=== PATIENT | male | born 1940 | race Caucasian/White ===

== ENCOUNTER 2022-09-11 16:42 | Inpatient (IN) ==
--- NOTE | 2022-09-11 17:00 | Emergency Department Note ---
Impression & Plan Sepsis, UTI (urinary tract infection), High anion gap metabolic acidosis, Hypomagnesemia ED Provider Note NAME: BARBARA MERLOS AGE: 82 SEX: M : 1940 ARRIVES VIA: Ambulance INFORMANT: Patient, ED PROVIDER(S): Ruiz Mahoney MD CHIEF COMPLAINT: Weakness, lightheadedness, diarrhea MEDICAL DECISION MAKING: Patient presents due to concern for weakness lightheadedness and diarrhea. When the patient presented he was tachycardic and hypotensive. Sepsis orders were initiated but given the patient's diarrhea this could just be symptomatic dehydration. The patient otherwise looks well and is mentating normally at the bedside. Upon reassessment the patient did have improvement in his symptoms with improvement of the patient's tachycardia as well as the patient's hypotension. Blood work shows white count of 13 with a hemoglobin of 13.7. Platelet count is unremarkable. Kidney function with creatinine 2.49. No priors for comparison. Lower bicarb and increased anion gap which would be consistent with some dehy dration and RYAN. Initial lactate of 3.8. Given the patient's initial tachycardia and hypotension with associated white blood cell count to believe the patient would benefit from admission at this time. I did speak the on-call hospitalist service and the patient was admitted to the medicine service. The patient does self catheterize and do believe that this is the likely cause of the patient's infection. Urinalysis pending at the time of admission. Repeat lactate improved from 3.8 to 3.3. Patient did not have a 30 cc/kg bolus use as the patient does have CKD. Blood pressure did respond to lesser volume. Patient initially Siuta 2 L of IV fluids and additional IV fluids deferred and patient team Critical Care: I have personally spent 35 minutes of critical care time in direct management of this patient. This includes bedside care, interpretation of diagnostic studies, and testing, discussion with consultants, patient, and family members, and other require inpatient management activities. This 35 minutes is in excess of all separately billable procedures. Prior /Outside records reviewed: None Differential diagnosis: Sepsis, UTI, pneumonia, metabolic, electrolyte abnormalities, cardiac sources, intracerebral event, toxicologic, neurologic, as well as other pathologies. Diagnostics, as interpreted by me: ECG: Sinus tachycardia, rate 137 normal intervals and normal axis. Sinus tachycardia, rate of 137, normal intervals normal axis. Cardiac monitoring: An order was placed for continuous cardiac monitoring. The monitor shows a rate of 127 with tachycardic and regular rhythm. Patient was placed on pulse oximetry Medical decision rules: None Imaging studies: See below I informally reviewed the patient's chest x-ray which showed no obvious pneumonia. HPI: Patient presents due to concern for weakness fatigue and dizziness. The patient states that he developed some chorea around 3 AM this morning and has had approximately 7-8 liquidy watery bowel movements. No blood. Patient did recently arrived from [place] as his son is getting . Patient denies any nausea vomiting. He did have some dizziness this His daughter had called the ambulance. IV fluids were initiated and he does feel improved already. The patient denies any known sick contacts. No other travel outside of his recent travel from [place]. The patient denies any untreated stream or well water recent antibiotic use. PAST MEDICAL HISTORY: Hypertension Hypothyroidism Thyroid ablation PAST SURGICAL HISTORY: History of rotator cuff surgery bilaterally Splenectomy SOCIAL HISTORY: See Below HOME MEDICATIONS: See Below ALLERGIES: See Below VITALS: See Below PHYSICAL EXAMINATION: GENERAL: Fatigable in appearance, wearing glasses. Tall in stature. EYE EXAM: Normal conjunctiva. PERRL, no anisocoria and EOM's grossly intact w/o pain. NECK: Supple, no nuchal rigidity, no adenopathy, non-tender. No signs of meningismus. FROM of the neck with good chin to chest and neck extension. No stridor. LUNGS: Clear to auscultation. Normal chest wall mechanics. HEART: Tachycardic and regular, no MRG. ABDOMEN: Abdomen soft, non-tender, no masses, no rebound or guarding. BACK: No CVA TTP. SKIN: No rashes and no bruising. UPPER EXTREMITIES: Upper extremities are grossly normal. LOWER EXTREMITIES: Grossly normal, no edema. NEURO EXAM: A&O x3, cranial nerves II-XII grossly intact, normal speech, moves all 4 extremities. Past Med/Surg History Medical History Gout HTN (hypertension) Hypotension Hypothyroidism Surgical History S/P splenectomy Social History Smoking Status: Former smoker Second Hand Exposure: No; Hx Alcohol Use: Yes Alcohol type: hard liquor Hx Substance Use: Yes Last Used Substance: Days (ago) Preferred Language: Kazakh Communication Ability: Effective Entertainment Centre Manager Required: No Beliefs That Will Affect Care: None Current Living Situation: Spouse Feels Safe at Home: Yes Assistive Devices: Glasses and Walker Allergies Allergies Allergy/AdvReac Type Severity Reaction Status Date / Time Sulfa (Sulfonamide Allergy Intermediate Rash Unverified 09/11/22 18:00 Antibiotics) Home Meds Home Medications Medication Instructions Recorded Confirmed Eliquis 0 mg PO BID 09/11/22 09/11/22 allopurinol 100 mg tablet 100 mg PO BID 09/11/22 09/11/22 diclofenac sodium 1 % topical gel 1 g topical DAILY 09/11/22 09/11/22 diphenhydramine 25 1 tab PO HS PRN Sleep 09/11/22 09/11/22 mg-acetaminophen 500 mg tablet (Tylenol PM Extra Strength) diphenhydramine HCl 25 mg capsule 25 mg PO TID PRN Allergy Symptoms 09/11/22 09/11/22 (Benadryl) gabapentin 300 mg capsule See Rx Instructions .Route .COMPLEX 09/11/22 09/11/22 hydrochlorothiazide 25 mg tablet 25 mg PO QAM 09/11/22 09/11/22 levothyroxine 200 mcg tablet 300 mcg PO 2XWK 09/11/22 09/11/22 levothyroxine 200 mcg tablet 200 mcg PO [id number] 09/11/22 09/11/22 (Levoxyl) Previous Rx's Medication Instructions Recorded cephalexin 500 mg capsule 500 mg PO TID #9 caps 09/13/22 Results & Data (ED) Vital Signs Vital Signs - 24 hr 09/11/22 16:49 09/11/22 16:49 09/11/22 17:11 Temperature 37 C Temperature Source Temporal Artery Scan Pulse Rate 137 H 138 H Respiratory Rate 16 Respiratory Effort / Characteristics Non-Labored Respiratory Depth Normal Blood Pressure 75/47 L Blood Pressure Mean 56 Blood Pressure Position Right Lateral Pulse Oximetry 98 Oxygen Delivery Method Room Air Room Air Sepsis New/Unexplained Change in Mental Status No Sepsis Action Taken by Nursing No Action Required 09/11/22 17:01 Temperature Temperature Source Pulse Rate Respiratory Rate Respiratory Effort / Characteristics Respiratory Depth Blood Pressure Blood Pressure Mean Blood Pressure Position Pulse Oximetry 94 Oxygen Delivery Method Room Air Sepsis New/Unexplained Change in Mental Status Sepsis Action Taken by Detention Medications Current Medication List: was personally reviewed by me Laboratory Data Attestation: I reviewed the patient's lab results. 09/11/22 17:00 09/11/22 17:00 Lab Results 09/11/22 09/11/22 09/11/22 Range/Units 17:00 17:00 17:00 WBC 13.01 H (4.8-10.8) K/ul RBC 4.29 L (4.70-6.10) M/uL Hgb 13.7 L (14.0-18.0) g/dl Hct 40.0 L (42.0-52.0) % MCV 93.2 (80.0-100.0) fL MCH 31.9 (25.0-34.0) pg MCHC 34.3 (32.0-36.0) g/dL RDW Std Deviation 46.0 (36.4-46.3) fL RDW Coeff of Kyleigh 13.6 (11.5-14.5) % Plt Count 317 (130-400) K/uL MPV 10.4 (9.4-12.4) fL Immature Gran % (Auto) 0.3 % Neut % (Auto) 86.0 % Lymph % (Auto) 6.4 % Piute % (Auto) 6.8 % Eos % (Auto) 0.1 % Baso % (Auto) 0.4 % Neut # (Auto) 11.19 H (1.40-6.50) K/uL Lymph # (Auto) 0.83 L (1.2-3.4) K/uL Piute # (Auto) 0.89 H (0.11-0.59) K/uL Eos # (Auto) 0.01 (0-0.50) K/uL Baso # (Auto) 0.05 (0-0.2) K/uL Immature Gran # (Auto) 0.04 (0.01-0.20) K/uL Sodium 137 (136-145) mmol/L Potassium 4.3 (3.5-5.1) mmol/L Chloride 103 (98-107) mmol/L Carbon Dioxide 19 L (21-32) mmol/L Anion Gap 15 H (3-11) BUN 59 H (6-23) mg/dl Creatinine 2.49 H (0.6-1.4) mg/dl Est Cr Clr Drug Dosing 32.4 ml/min Est GFR ( Amer) 27.2 ml/min Est GFR (Non-Af Amer) 23.5 ml/min BUN/Creatinine Ratio 23.7 H (10-20) Glucose 145 H (70-99(Fasting)) mg/dl Lactate (0.4-2.0) mmol/L Calcium 9.9 (8.6-10.3) mg/dl Magnesium 1.3 L (1.7-2.4) mg/dl Total Bilirubin 0.6 (0.2-1.0) mg/dl Direct Bilirubin 0.1 (0-0.2) mg/dl AST 15 (13-39) U/L ALT 11 (7-52) U/L Alkaline Phosphatase 53 (34-104) U/L Troponin I High Sens 4.7 (0-20) pg/ml Total Protein 6.9 (6.0-8.3) gm/dl Albumin 3.9 (3.4-5.0) gm/dl Procalcitonin 0.68 H (0-0.5) ng/ml TSH (0.300-4.500) uIu/ml 09/11/22 09/11/22 Range/Units 17:00 17:35 WBC (4.8-10.8) K/ul RBC (4.70-6.10) M/uL Hgb (14.0-18.0) g/dl Hct (42.0-52.0) % MCV (80.0-100.0) fL MCH (25.0-34.0) pg MCHC (32.0-36.0) g/dL RDW Std Deviation (36.4-46.3) fL RDW Coeff of Kyleigh (11.5-14.5) % Plt Count (130-400) K/uL MPV (9.4-12.4) fL Immature Gran % (Auto) % Neut % (Auto) % Lymph % (Auto) % Piute % (Auto) % Eos % (Auto) % Baso % (Auto) % Neut # (Auto) (1.40-6.50) K/uL Lymph # (Auto) (1.2-3.4) K/uL Piute # (Auto) (0.11-0.59) K/uL Eos # (Auto) (0-0.50) K/uL Baso # (Auto) (0-0.2) K/uL Immature Gran # (Auto) (0.01-0.20) K/uL Sodium (136-145) mmol/L Potassium (3.5-5.1) mmol/L Chloride (98-107) mmol/L Carbon Dioxide (21-32) mmol/L Anion Gap (3-11) BUN (6-23) mg/dl Creatinine (0.6-1.4) mg/dl Est Cr Clr Drug Dosing ml/min Est GFR ( Amer) ml/min Est GFR (Non-Af Amer) ml/min BUN/Creatinine Ratio (10-20) Glucose (70-99(Fasting)) mg/dl Lactate 3.8 H* (0.4-2.0) mmol/L Calcium (8.6-10.3) mg/dl Magnesium (1.7-2.4) mg/dl Total Bilirubin (0.2-1.0) mg/dl Direct Bilirubin (0-0.2) mg/dl AST (13-39) U/L ALT (7-52) U/L Alkaline Phosphatase (34-104) U/L Troponin I High Sens (0-20) pg/ml Total Protein (6.0-8.3) gm/dl Albumin (3.4-5.0) gm/dl Procalcitonin (0-0.5) ng/ml TSH 0.594 (0.300-4.500) uIu/ml Administered Medications Discontinued Medications Acetaminophen (Acetaminophen 325 Mg Tab) 650 mg PO Q4H PRN PRN Reason: Pain(1,2,3) Or Fever Stop: 10/11/22 22:19 Last Admin: 09/13/22 00:44 Dose: 650 mg Documented By: Admin: 09/11/22 23:06 Dose: 650 mg Documented By: ANNABELLA Apixaban (Apixaban 2.5 Mg Tab) 2.5 mg PO BID SHAZIA Stop: 10/11/22 22:19 Last Admin: 09/13/22 08:35 Dose: 2.5 mg Documented By: Admin: 09/12/22 19:36 Dose: 2.5 mg Documented By: Admin: 09/12/22 08:41 Dose: 2.5 mg Documented By: Admin: 09/11/22 23:05 Dose: 2.5 mg Documented By: ANNABELLA Gabapentin (Gabapentin 300 Mg Cap) 600 mg PO TID@1200,1600,2000 SHAZIA Stop: 10/11/22 22:19 Last Admin: 09/13/22 11:54 Dose: Not Given Documented By: Admin: 09/12/22 19:36 Dose: 600 mg Documented By: Admin: 09/12/22 16:43 Dose: 600 mg Documented By: Admin: 09/12/22 11:00 Dose: 600 mg Documented By: Admin: 09/11/22 23:05 Dose: 600 mg Documented By: ANNABELLA Sodium Chloride (Nss 1000ml) 1,000 mls @ 999 mls/hr IV .Q1H1M SHAZIA Stop: 09/11/22 19:00 Last Infusion: 09/12/22 07:06 Dose: 0 mls/hr Documented By: Admin: 09/11/22 18:12 Dose: 999 mls/hr Documented By: Infusion: 09/11/22 18:06 Dose: 999 mls/hr Documented By: Infusion: 09/11/22 18:05 Dose: 999 mls/hr Documented By: Admin: 09/11/22 17:05 Dose: 999 mls/hr Documented By: ROMIE Piperacillin Sod/Tazobactam Sod (Zosyn) 4.5 gm in 120 mls @ 240 mls/hr IV NOW ONE Stop: 09/11/22 19:01 Last Infusion: 09/12/22 07:05 Dose: 0 mls/hr Documented By: Admin: 09/11/22 19:32 Dose: 240 mls/hr Documented By: AMADOR Magnesium Sulfate/Dextrose (Magnesium Sulfate / D5w) 1 gm in 100 mls @ 100 mls/hr IV NOW STA Stop: 09/11/22 19:32 Last Infusion: 09/12/22 07:05 Dose: 0 mls/hr Documented By: Admin: 09/11/22 18:48 Dose: 100 mls/hr Documented By: ANGEL Lactated Ringer's (Lr) 1,000 mls @ 999 mls/hr IV .Q1H1M ONE Stop: 09/11/22 20:29 Last Infusion: 09/12/22 07:05 Dose: 0 mls/hr Documented By: Admin: 09/11/22 20:12 Dose: 999 mls/hr Documented By: AMADOR Lactated Ringer's (Lr) 1,000 mls @ 999 mls/hr IV .Q1H1M ONE Stop: 09/11/22 21:15 Last Admin: 09/11/22 22:22 Dose: Not Given Documented By: AMADOR Magnesium Sulfate/Dextrose (Magnesium Sulfate / D5w) 1 gm in 100 mls @ 50 mls/hr IV Q2H [facility] Stop: 09/12/22 06:59 Last Infusion: 09/12/22 07:05 Dose: 0 mls/hr Documented By: Admin: 09/12/22 04:34 Dose: 50 mls/hr Documented By: Infusion: 09/12/22 04:29 Dose: 50 mls/hr Documented By: Admin: 09/12/22 02:29 Dose: 50 mls/hr Documented By: Infusion: 09/12/22 02:29 Dose: 50 mls/hr Documented By: Admin: 09/12/22 00:38 Dose: 50 mls/hr Documented By: Infusion: 09/12/22 00:38 Dose: 50 mls/hr Documented By: Admin: 09/11/22 22:49 Dose: 50 mls/hr Documented By: ANNABELLA Piperacillin Sod/Tazobactam (Sod 4.5 gm/ Dextrose) 120 mls @ 30 mls/hr IV Q8H [facility]; Protocol Stop: 09/22/22 02:59 Last Admin: 09/13/22 11:54 Dose: Not Given Documented By: Infusion: 09/13/22 08:21 Dose: 0 mls/hr Documented By: Admin: 09/13/22 04:11 Dose: 30 mls/hr Documented By: Infusion: 09/12/22 23:34 Dose: 0 mls/hr Documented By: Admin: 09/12/22 19:36 Dose: 30 mls/hr Documented By: Infusion: 09/12/22 14:57 Dose: 0 mls/hr Documented By: Admin: 09/12/22 10:56 Dose: 30 mls/hr Documented By: Infusion: 09/12/22 07:29 Dose: 0 mls/hr Documented By: Admin: 09/12/22 04:02 Dose: 30 mls/hr Documented By: ANNABELLA Sodium Chloride (Nss 1000ml) 1,000 mls @ 100 mls/hr IV .Q10H [facility] Stop: 10/12/22 08:29 Last Infusion: 09/13/22 09:22 Dose: 0 mls/hr Documented By: Admin: 09/13/22 06:11 Dose: 100 mls/hr Documented By: Infusion: 09/13/22 05:36 Dose: 100 mls/hr Documented By: Admin: 09/12/22 19:36 Dose: 100 mls/hr Documented By: Infusion: 09/12/22 19:14 Dose: 100 mls/hr Documented By: Infusion: 09/12/22 11:22 Dose: 100 mls/hr Documented By: Admin: 09/12/22 08:41 Dose: 80 mls/hr Documented By: NADIA Ioversol (Optiray 320 125ml) 118 ml IV ONCE ONE Stop: 09/11/22 20:34 Last Admin: 09/11/22 20:34 Dose: 118 ml Documented By: SHANNA Levothyroxine Sodium (Levothyroxine Sodium 200 Mcg Tablet) 200 mcg PO [id number] [facility] Stop: 10/12/22 06:29 Last Admin: 09/13/22 06:11 Dose: 200 mcg Documented By: Admin: 09/12/22 05:48 Dose: 200 mcg Documented By: SRS Imaging Data Radiologist's Impression: Chest X-Ray 09/11/22 17:01 XR chest 1V portable HISTORY: Sepsis COMPARISON: None. FINDINGS: No pneumothorax. No pleural effusions. There are low lung volumes. A few small bibasilar linear densities favor subsegmental atelectasis. Otherwise, no focal lung consolidations to suggest pneumonia. No evidence for pulmonary edema. The heart is normal in size. Degenerative changes noted within the right shoulder. IMPRESSION: No acute process. ACT 112: Negative or not required by law. Electronically signed by: Andrey Ngo M.D. 09/11/2022 6:06 PM Discharge Plan Visit Data Chief Complaint: Illness Stated Complaint: DIARRHEA, DEHYDRATION ED Provider: Ruiz Mahoney Discharge Problem: Sepsis, UTI (urinary tract infection), High anion gap metabolic acidosis, Hypom agnesemia Patient Disposition: Admitted As Inpatient Discharge Instructions Interventions: ED Discharge Assessment Last Done: 09/11/22 22:24
[2022-09-11] MEDS: SODIUM CHLORIDE 0.9% 1000ML 1,000 ML IV SCH ×2 (17:05→18:12)
[2022-09-11 17:29] LABS: Basophils # (auto) 0.05 K/uL (0-0.2); Basophils % (auto) 0.4 %; Eosinophils # (auto) 0.01 K/uL (0-0.50); Eosinophils % (auto) 0.1 %; Hemoglobin 13.7 g/dl (14.0-18.0); Immature Granulocytes # (auto) 0.04 K/uL (0.01-0.20); Immature Granulocytes % (auto) 0.3 %; Lymphocytes # (auto) 0.83 K/uL (1.2-3.4); Lymphocytes % (auto) 6.4 %; Mean Corpuscular Hemoglobin 31.9 pg (25.0-34.0); Mean Corpuscular Hgb Conc 34.3 g/dL (32.0-36.0); Mean Corpuscular Volume 93.2 fL (80.0-100.0); Mean Platelet Volume 10.4 fL (9.4-12.4); Monocytes # (auto) 0.89 K/uL (0.11-0.59); Monocytes % (auto) 6.8 %; Neutrophils # (auto) 11.19 K/uL (1.40-6.50); Platelet Count 317 K/uL (130-400); RDW Coefficient of Variation 13.6 % (11.5-14.5); Red Blood Count 4.29 M/uL (4.70-6.10); White Blood Count 13.01 K/ul (4.8-10.8)
[2022-09-11 17:49] LABS: Albumin Level 3.9 gm/dl (3.4-5.0); BUN Creatinine Ratio 23.7 (10-20); Bilirubin Direct 0.1 mg/dl (0-0.2); Bilirubin,Total 0.6 mg/dl (0.2-1.0); Calcium 9.9 mg/dl (8.6-10.3); Creatinine Clr Calc Pharmacy 32.4 ml/min; Est GFR (African American) 27.2 ml/min; Est GFR (Non-African American) 23.5 ml/min; Magnesium 1.3 mg/dl (1.7-2.4); Potassium 4.3 mmol/L (3.5-5.1); Total Protein 6.9 gm/dl (6.0-8.3)
[2022-09-11 17:53] LABS: Troponin I High Sensitivity 4.7 pg/ml (0-20)
--- NOTE | 2022-09-11 18:07 | XRay Report ---
XR chest 1V portable HISTORY: Sepsis COMPARISON: None. FINDINGS: No pneumothorax. No pleural effusions. There are low lung volumes. A few small bibasilar li near densities favor subsegmental atelectasis. Otherwise, no focal lung consolidations to suggest pne umonia. No evidence for pulmonary edema. The heart is normal in size. Degenerative changes noted with in the right shoulder. IMPRESSION: No acute process. ACT 112: Negative or not required by law. Electronically signed by: Andrey Ngo M.D. 09/11/2022 6:06 PM
[2022-09-11] MEDS ORDERED: MAGNESIUM SULFATE / D5W 1 GM/100 ML BAG IV STA (18:33)
[2022-09-11] MEDS: PIPERACILLIN/TAZOBACTAM 4.5 GM/120 ML BAG IV ONE ×3 (18:47→19:32)
--- NOTE | 2022-09-11 19:00 | History & Physical Report ---
Date of Service September 11, 2022 Assessment & Plan (1) Sepsis: Plan: -Admit to med-tele -Currently stable after initial resuscitation in the ED -Patient was hypotensive, tachycardic, with significant leukocytosis and initial lactate of 3.8 -At this time the most likely source is an acute diarrhea illness, chest xray was negative for consolidation, patient is giving a urine sample at the time of the admission -S/P one dose of zosyn in the ED, will continue zosyn at this time as he is immunocompromised with splenectomy in 1993 -Will obtain CT of the abd/pelvis w/IV con (at baseline baseline Cr level per patient) for further evaluation -Blood cultures obtain in the ED -Will order stool cultures and C. diff PCR -Repeat lactate is in process -Will give an additional 2L LR bolus on admission to complete his sepsis bolus -Home Eliquis for DVT PPX -Will start him on a clear liquid diet for now -AM CBC, CMP, Mag, PT/INR (2) Hypotension: Plan: -Initially hypotensive with systolics in the 70's on arrival -Currently stable after 1L NSS in the ED -Likely multifactorial including acute diarrheal disease and continued HCTZ use with sepsis -Hold HCT for now, will continue IV fluid resuscitation (3) High anion gap metabolic acidosis: Plan: -AG noted to be 15, bicarb of 19, lactate of 3.8 -Likely due to elevated lactate from dehydration and sepsis -2 hour repeat lactate is in process -Continue IV fluid resuscitation and antibiotics for possible infection (4) Hypomagnesemia: Plan: -Initial mag of 1.3 -Likely due to his acute diarrheal disease and continued HCTZ use -S/P 1gm IV mag sulfate in the ED -Will give another 4 bags of 1gm IV mag sulfate -Monitor on tele and monitor am mag level (5) S/P splenectomy: Plan: -Had splenectomy in 1993 -Reason for continued IV abx at this time as he is immunocompromised (6) Hypothyroidism: Plan: -Will add on TSH on admission -Continue levothyroxine (7) terminal carman current use of anticoagulant: Plan: -Previous history of multiple DVT's and PE's -Continue Eliquis. Patient told [employer] he was unsure of dose; he is currently on it for VTE prophylaxis, will continue on 2.5 mg BID (8) HTN (hypertension): Plan: -Stable -Hold HCTZ with current sepsis and recent hypotension (9) Gout: Plan: -Will hold allopurinol until he is stable Plan The patient was discussed with Dr. 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 ED via EMS on 09/11 due to acute diarrhea and weakness. In the ED the patient was initially found to be hypotensive at 75/47, tachycardic with HR in the 140's, but otherwise stable. Labs were significant for a leukocytosis of 13 with left shift of 11, Cr of 2.49 (no previous baseline in system), BUN of 59, AG of 15 with bicarb of 19, initial lactate of 3.8, mag of 1.3, and procal of 0.68. Chest xray was read as "no acute process" and ECG shows sinus tachycardia with a short P-R interval. Prior to admission the patient was given 1L NSS, ordered 1gm of IV mag-sulfate, and ordered a dose of Zosyn. At the time of the exam the patient was resting in bed in no acute distress. He states that he lives in [place] but is in town visiting his son. He had been in his normal state of health until this am at approximately 0300 when he started to developed non-bloody diarrhea. He has had a temperature of 100F this am and has had approximately 10-15 episodes of diarrhea since it started. They ate at a [employer] restaurant for dinner last night, and denies drinking any well water recently. He denies recent antibiotic treatment and did take his am medications today, including his HCTZ. 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 He currently feels less weak than arrival but not back to his baseline yet. He denies recent chest pain, SOB, abd pain, nausea, vomiting, hematuria, LE swelling, and recent trauma. He is a full code and would want his to make medical decisions for him if he cannot make them himself. Please refer to Dr. Salomon's attestation for any changes to the treatment plan Allergies Allergy/AdvReac Type Severity Reaction Status Date / Time Sulfa (Sulfonamide Allergy Intermediate Rash Unverified 09/11/22 18:00 Antibiotics) Home Medications Medication Instructions Recorded Confirmed Type Eliquis 0 mg PO BID 09/11/22 09/11/22 History allopurinol 100 mg tablet 100 mg PO BID 09/11/22 09/11/22 History diclofenac sodium 1 % topical gel 1 g topical DAILY 09/11/22 09/11/22 History diphenhydramine 25 1 tab PO HS PRN Sleep 09/11/22 09/11/22 History mg-acetaminophen 500 mg tablet (Tylenol PM Extra Strength) diphenhydramine HCl 25 mg capsule 25 mg PO TID PRN Allergy Symptoms 09/11/22 09/11/22 History (Benadryl) gabapentin 300 mg capsule See Rx Instructions .Route .COMPLEX 09/11/22 09/11/22 History hydrochlorothiazide 25 mg tablet 25 mg PO QAM 09/11/22 09/11/22 History levothyroxine 200 mcg tablet 300 mcg PO 2XWK 09/11/22 09/11/22 History levothyroxine 200 mcg tablet 200 mcg PO 5XWK 09/11/22 09/11/22 History (Levoxyl) Past Med/Surg History Social History Smoking Status: Former smoker Smoking End Date: 1967; Second Hand Exposure: No; Tobacco Cessation Education Requested by Patient: No Hx Alcohol Use: Yes Alcohol type: hard liquor Hx Substance Use: Yes Last Used Substance: Days (ago) Preferred Language: Tamaz[place] Communication Ability: Effective Gate Guard Required: No Beliefs That Will Affect Care: None Current Living Situation: Spouse Other Information That Helps Us Care for You: No Feels Safe at Home: Yes Safety Concerns: Feels Safe At This Time Assistive Devices: Glasses and Walker Physical Exam Physical Exam: Physical Exam: General: In no acute distress, stated age, well-nourished, non-toxic appearing HEENT: Normocephalic, atraumatic, no scleral icterus, pupils around round, symmetrical, and reactive to light, moist mucus membranes, trachea midline, no thyromegaly Chest/Pulm: No respiratory distress, symmetrical chest expansion, clear breath sounds throughout Cardiac: RRR, no murmurs noted Abdomen: Negative for ascites and bruising, hyperactive bowel sounds, soft, non-tender to palpation throughout Musculoskeletal: Symmetrical and without signs of acute trauma, upper and lower extremities with full ROM, no atrophy, spasticity, or flaccidity Extremities: Radial, dorsalis pedis, and posterior tibial pulses are intact and symmetrical, no edema noted in the BL LE's Skin: Warm, dry, no rashes , lesions, or scars noted Neuro: Alert and oriented to person, place, month, year, and president, no focal defects, no tremors noted Psych: No acute distress, calm and cooperative during the exam Results & Data Results & Data Vital Signs (Past 12 Hours) Vital Signs Temp Pulse Pulse Resp BP BP Pulse Ox 09/11/22 18:16 122 H 15 114/71 96 09/11/22 18:01 125 H 18 119/72 97 09/11/22 17:46 129 H 16 98/62 L 97 09/11/22 17:31 130 H 16 77/52 L 96 09/11/22 17:16 132 H 17 74/49 L 97 09/11/22 17:01 37 C 138 H 16 85/54 L 97 09/11/22 17:01 94 09/11/22 17:11 138 H 09/11/22 16:49 09/11/22 16:49 37 C 137 H 16 75/47 L 98 O2 Del Method 09/11/22 18:16 Room Air 09/11/22 18:01 Room Air 09/11/22 17:46 Room Air 09/11/22 17:31 Room Air 09/11/22 17:16 09/11/22 17:01 Room Air 09/11/22 17:01 Room Air 09/11/22 17:11 09/11/22 16:49 Room Air 09/11/22 16:49 Room Air Laboratory Results Abnormal lab results 09/11/22 09/11/22 09/11/22 Range/Units 17:00 17:00 17:00 WBC 13.01 H (4.8-10.8) K/ul RBC 4.29 L (4.70-6.10) M/uL Hgb 13.7 L (14.0-18.0) g/dl Hct 40.0 L (42.0-52.0) % Neut # (Auto) 11.19 H (1.40-6.50) K/uL Lymph # (Auto) 0.83 L (1.2-3.4) K/uL [place] # (Auto) 0.89 H (0.11-0.59) K/uL Carbon Dioxide 19 L (21-32) mmol/L Anion Gap 15 H (3-11) BUN 59 H (6-23) mg/dl Creatinine 2.49 H (0.6-1.4) mg/dl BUN/Creatinine Ratio 23.7 H (10-20) Glucose 145 H (70-99(Fasting)) mg/dl Lactate (0.4-2.0) mmol/L Magnesium 1.3 L (1.7-2.4) mg/dl Procalcitonin 0.68 H (0-0.5) ng/ml 09/11/22 Range/Units 17:35 WBC (4.8-10.8) K/ul RBC (4.70-6.10) M/uL Hgb (14.0-18.0) g/dl Hct (42.0-52.0) % Neut # (Auto) (1.40-6.50) K/uL Lymph # (Auto) (1.2-3.4) K/uL [place] # (Auto) (0.11-0.59) K/uL Carbon Dioxide (21-32) mmol/L Anion Gap (3-11) BUN (6-23) mg/dl Creatinine (0.6-1.4) mg/dl BUN/Creatinine Ratio (10-20) Glucose (70-99(Fasting)) mg/dl Lactate 3.8 H* (0.4-2.0) mmol/L Magnesium (1.7-2.4) mg/dl Procalcitonin (0-0.5) ng/ml Diagnostic Findings Chest X-Ray 09/11/22 17:01 XR chest 1V portable HISTORY: Sepsis COMPARISON: None. FINDINGS: No pneumothorax. No pleural effusions. There are low lung volumes. A few small bibasilar linear densities favor subsegmental atelectasis. Otherwise, no focal lung consolidations to suggest pneumonia. No evidence for pulmonary edema. The heart is normal in size. Degenerative changes noted within the right shoulder. IMPRESSION: No acute process. ACT 112: Negative or not required by law. Electronically signed by: Andrey Ngo M.D. 09/11/2022 6:06 PM ECG Additional Comments: Sinus tachycardia with short [place] Otherwise normal ECG No previous ECGs available Code Status & VTE Plan Code Status Full code VTE Prophylaxis Plan VTE Prophylaxis will be ordered: Yes Supervising Physician Co-Signing Physician Notes I personally saw and examined the patient. I verified all vivas points and agree with Kt Mceknzie PA-C with the following exceptions and/or additions: 82 year old male presents to the ER with non-bloody diarrhea and fever that started this morning. No prior episodes. O/E HS RRR, no murmurs, Chest CTAB, Abdo SNT, no CVA tenderness A/P Suspected gastroenteritis / sepsis - given splenectomy state will treat empirically with IV zosyn and get CT A/P with IV contrast. Stool PCR, C. diff. Replace magnesium CKD - patient reports Cr at baseline. PG Care Time/CCT Total # of Minutes Spent Total Time Spent with Patient: Total time spent is greater than 50% in coordination of care (as documented) at patient's floor/unit and/or counseling patient: [place] [address] INT INP/OBS CARE 3/75MIN Patient Type New Medical Decision Making High Complexity Diagnoses Sepsis A41.9 Hypotension I95.9 High anion gap metabolic acidosis E87.29 Hypomagnesemia E83.42 S/P splenectomy Z90.81 Hypothyroidism E03.9 terminal carman current use of anticoagulant Z79.01 HTN (hypertension) I10 Gout M10.9
[2022-09-11] MEDS ORDERED: LACTATED RINGER'S 1,000 ML IV ONE ×2 (19:29→20:15)
[2022-09-11] MEDS ORDERED: OPTIRAY 320 125ml IV ONE (20:33)
[2022-09-11 20:34] LABS: Appearance Urine Clear (Clear); Bacteria Urine Automated 2+ (Negative); Bilirubin Urine Negative (Negative); Blood Urine 3+ (Negative); Color Urine Yellow; Glucose Urine UA Negative (Negative); Ketones Urine Negative (Negative); Leukocyte Esterase Urine 2+ (Negative); Nitrite Urine Negative (Negative); Protein Urine Negative (Negative); RBC Urine Automated >30 /hpf (0-4); Specific Gravity Urine 1.017 (1.000-1.030); Urobilinogen Urine Negative (Negative)
--- NOTE | 2022-09-11 21:02 | CT Scan Report ---
Exam(s): CTA ABDOMEN + PELVIS With Contrast IV Amt: 115ml EXAM: CT Angiography Abdomen and Pelvis With Intravenous Contrast CLINICAL HISTORY: Reason for exam: sepsis, diarrhea, hx of splenectomy. TECHNIQUE: Axial computed tomographic angiography images of the abdomen and pelvis with intravenous contrast. CTDI is 37.45 mGy and DLP is 1536.07 mGy-cm. Automated exposure control was utilized for the study. A dose lowering technique was utilized adhering to the principles of ALARA. MIP reconstructed images were created and reviewed. CONTRAST: Patient received 115ml of IV contrast COMPARISON: No relevant prior studies available. FINDINGS: Lung bases are clear. Gallbladder surgically absent. There is no biliary dilatation. Subcentimeter benign hepatic cyst is noted in the left hepatic lobe. Liver is otherwise unremarkable. Spleen is absent. Pancreas and adrenal glands are within normal limits. Kidneys enhance symmetrically, without hydronephrosis or significant perinephric stranding. There is mild atrophy of the left kidney. There are simple right kidney cyst, largest at the midpole measuring 4.7 cm; no further follow-up is required. Urinary bladder and prostate are unremarkable. There is no adenopathy, free fluid, or free air. Appendix is normal. There is no bowel obstruction or mucosal thickening. Small bowel fluid levels are observed. There is atherosclerosis without abdominal aortic aneurysm or dissection. Celiac artery is patent. 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 SMA is patent. 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 BARBARA is patent. Bilateral common, internal, and external iliac arteries are patent. Bones are osteopenic. There is lumbar spondylosis. 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 No acute fractures are visualized. IMPRESSION: 1. Small bowel fluid levels may represent enteritis. 2. Aorta and its branch vessels appear patent. 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 Electronically signed by: Karine Bai M.D. 09/11/22 21:01 PM
[2022-09-11] MEDS: MAGNESIUM SULFATE / D5W 1 GM/100 ML BAG IV SCH (22:49)
[2022-09-11] MEDS: APIXABAN 2.5 MG TAB PO SCH (23:05)
[2022-09-11] MEDS: GABAPENTIN 300 MG CAP PO SCH (23:05)
[2022-09-11] MEDS: ACETAMINOPHEN 325 MG TAB PO PRN (23:06)
[2022-09-12] MEDS: MAGNESIUM SULFATE / D5W 1 GM/100 ML BAG IV SCH ×3 (00:38→04:34)
[2022-09-12 00:40] LABS: Adenovirus F 40/41 PCR Not Detected (NotDetected); Astrovirus PCR Not Detected (NotDetected); Campylobacter PCR Not Detected (NotDetected); Cryptosporidium PCR Not Detected (NotDetected); Cyclospora cayetanensis PCR Not Detected (NotDetected); Entamoeba histolytica PCR Not Detected (NotDetected); Enteroaggregative E.coli(EAEC) Not Detected (NotDetected); Enteropathogenic E.coli (EPEC) Not Detected (NotDetected); Enterotoxigenic E.coli (ETEC) Not Detected (NotDetected); Giardia lamblia PCR Not Detected (NotDetected); Plesiomonas shigelloides PCR Not Detected (NotDetected); Rotavirus A PCR Not Detected (NotDetected); Salmonella PCR Not Detected (NotDetected); Sapovirus PCR Not Detected (NotDetected); Shiga-like Toxin E.coli (STEC) Not Detected (NotDetected); Shigella/Enteroinvasive E.coli Not Detected (NotDetected); Vibrio cholerae PCR Not Detected (NotDetected); Vibrio species PCR Not Detected (NotDetected); Yersinia enterocolitica PCR Not Detected (NotDetected)
[2022-09-12 00:56] LABS: Cdiff Toxin B Gene (2yr or >) Positive Cdiff Gene (Neg)
[2022-09-12 00:57] LABS: Cdiff Antigen Positive; Cdiff Toxin A+B Negative Cdiff Toxin (Negative)
[2022-09-12 00:58] LABS: Norovirus GI/GII PCR DETECTED (NotDetected)
[2022-09-12] MEDS: PIPERACILLIN/TAZOBACTAM 4.5 GM in DEXTROSE 5% 100 ML IV SCH ×3 (04:02→19:36)
[2022-09-12] MEDS: LEVOTHYROXINE SODIUM 200 MCG TABLET PO SCH (05:48)
[2022-09-12 06:59] LABS: Basophils # (auto) 0.06 K/uL (0-0.2); Basophils % (auto) 0.6 %; Eosinophils # (auto) 0.08 K/uL (0-0.50); Eosinophils % (auto) 0.8 %; Hematocrit (blood only) 35.5 % (42.0-52.0); Hemoglobin 12.8 g/dl (14.0-18.0); Immature Granulocytes # (auto) 0.04 K/uL (0.01-0.20); Immature Granulocytes % (auto) 0.4 %; Lymphocytes # (auto) 1.06 K/uL (1.2-3.4); Lymphocytes % (auto) 10.1 %; Mean Corpuscular Hemoglobin 33.1 pg (25.0-34.0); Mean Corpuscular Hgb Conc 36.1 g/dL (32.0-36.0); Mean Corpuscular Volume 91.7 fL (80.0-100.0); Mean Platelet Volume 10.3 fL (9.4-12.4); Monocytes % (auto) 11.5 %; Neutrophils # (auto) 8.01 K/uL (1.40-6.50); Neutrophils % (auto) 76.6 %; Platelet Count 265 K/uL (130-400); RDW Coefficient of Variation 13.4 % (11.5-14.5); RDW Standard Deviation 44.3 fL (36.4-46.3); Red Blood Count 3.87 M/uL (4.70-6.10); White Blood Count 10.45 K/ul (4.8-10.8)
[2022-09-12 07:09] LABS: Albumin Globulin Ratio 1.2 (0.9-2); Albumin Level 3.4 gm/dl (3.4-5.0); BUN Creatinine Ratio 24.4 (10-20); Bilirubin,Total 0.5 mg/dl (0.2-1.0); Calcium 9.2 mg/dl (8.6-10.3); Creatinine Clr Calc Pharmacy 36.3 ml/min; Est GFR (African American) 31.4 ml/min; Est GFR (Non-African American) 27.1 ml/min; Globulin 2.9 gm/dl (2.5-4.0); Magnesium 2.3 mg/dl (1.7-2.4); Potassium 4.1 mmol/L (3.5-5.1); Total Protein 6.3 gm/dl (6.0-8.3)
[2022-09-12 07:15] LABS: Prothrombin Time 11.2 Seconds (9.0-12.0)
[2022-09-12] MEDS: APIXABAN 2.5 MG TAB PO SCH ×2 (08:41→19:36)
[2022-09-12] MEDS: SODIUM CHLORIDE 0.9% 1000ML 1,000 ML IV SCH ×2 (08:41→19:36)
[2022-09-12] MEDS: GABAPENTIN 300 MG CAP PO SCH ×3 (11:00→19:36)
--- NOTE | 2022-09-12 12:08 | Electrocardiogram Report ---
Test Reason : Blood Pressure : / mmHG Vent. Rate : 137 BPM Atrial Rate : 137 BPM P-R Int : 088 ms QRS Dur : 082 ms QT Int : 304 ms P-R-T Axes : 000 043 048 degrees QTc Int : 459 ms Supraventricular tachycardia No previous ECGs available Confirmed by Noah Perkins ([id number]) on 09/12/2022 12:08:22 PM Referred By: REFERRED SELF Confirmed By:Jameson Perkins
--- NOTE | 2022-09-12 12:30 | Hospitalist Progress Note ---
Date of Service September 12, 2022 Assessment & Plan (1) Enteritis due to Norovirus: Plan: Supportive care. Continue IV fluids. C. difficile gene positivity but no recent antibiotic use and I doubt if he has active C. difficile enteritis (2) UTI (urinary tract infection): Plan: Gram-negative rods isolated. Continue Zosyn, day 2. Await final culture results and sensitivities (3) Sepsis: Plan: Present on admission with associated hypotension. This resolved with IV fluids. He did not require pressor support. Blood culture results are still pending. (4) Hypomagnesemia: Plan: Corrected with parenteral replacement (5) Hypothyroidism: Plan: Stable. Continue levothyroxine replacement therapy (6) alf current use of anticoagulant: Plan: Previous history of multiple DVT's and PE's . Continue Eliquis therapy (7) HTN (hypertension): Plan: Stable. Diuretic is temporarily on hold Plan Hopeful discharge to home tomorrow, September 13 Admission and Anticipated Discharge Date Admission Date: September 11, 2022 Subjective Alert and oriented. He has tested positive for norovirus. C. difficile gene is positive but I do not think he has active C. difficile infection. No recent antibiotics. He has evidence of UTI with gram-negative rods isolated. He remains on Zosyn, day 2. Continue IV fluids for now. Physical therapy evaluation noted. Creatinine elevated on admission which is probably acute. I do not know if he has chronic underlying chronic kidney disease but he probably does at his age. He also remains on Eliquis therapy. Review of Systems Review of Systems: Constitutional-no fever or chills ENT-no blurred vision, no double vision, no epistaxis, no sore throat Respiratory-no cough, no wheezing, no shortness of breath Cardiac-no palpitations, no chest pain, no syncope GI-no nausea, vomiting, melena, hematochezia. Watery diarrhea started several days -no urinary retention, no urinary incontinence, no dysuria, no hematuria Musculoskeletal-no joint pain, no muscle tenderness Skin-no bruising, no rashes, no pruritus Neuro-generalized weakness. No focal deficits Psych-no depression, no anxiety Physical Exam 2 Physical Exam: General-alert and oriented x3, no fevers, no chills HEENT-head atraumatic and normocephalic, pupils equal and reactive to light, extraocular muscles intact Neck-no lymphadenopathy or thyromegaly, trachea midline Chest-clear to auscultation percussion. No rales wheezing or rhonchi Cardiac-regular rate and rhythm, normal S1 and S2, no murmurs Abdomen-normal bowel sounds, nontender, no hepatosplenomegaly. Frequent loose stools Extremities-no cyanosis, clubbing, or edema Neuro-cranial nerves II through XII intact, motor and sensory function within normal limits, strength symmetrical with generalized weakness, no focal deficits Psych-normal affect, normal mood Results & Data Results & Data Vital Signs (Past 12 Hours) Vital Signs Temp Pulse Pulse Resp BP Pulse Ox O2 Del Method 09/12/22 07:35 83 09/12/22 03:17 36.8 C 76 18 104/62 96 Room Air Laboratory Results 09/12/22 06:35 09/12/22 06:35 PG Care Time/CCT Total # of Minutes Spent Total Time Spent with Patient: Total time spent is greater than 50% in coordination of care (as documented) at patient's floor/unit and/or counseling patient: Coding Level of Care Code 96712 SUB INP/OBS CARE 3/50MIN Diagnoses Enteritis due to Norovirus A08.11 UTI (urinary tract infection) N39.0 Sepsis A41.9 Hypomagnesemia E83.42 Hypothyroidism E03.9 alf current use of anticoagulant Z79.01 HTN (hypertension) I10
[2022-09-13] MEDS: ACETAMINOPHEN 325 MG TAB PO PRN (00:44)
[2022-09-13] MEDS: PIPERACILLIN/TAZOBACTAM 4.5 GM in DEXTROSE 5% 100 ML IV SCH ×2 (04:11→11:54)
[2022-09-13] MEDS: LEVOTHYROXINE SODIUM 200 MCG TABLET PO SCH (06:11)
[2022-09-13] MEDS: SODIUM CHLORIDE 0.9% 1000ML 1,000 ML IV SCH (06:11)
[2022-09-13 07:27] LABS: Basophils # (auto) 0.04 K/uL (0-0.2); Basophils % (auto) 0.5 %; Eosinophils # (auto) 0.41 K/uL (0-0.50); Eosinophils % (auto) 4.9 %; Hematocrit (blood only) 33.8 % (42.0-52.0); Hemoglobin 11.8 g/dl (14.0-18.0); Immature Granulocytes # (auto) 0.03 K/uL (0.01-0.20); Immature Granulocytes % (auto) 0.4 %; Lymphocytes % (auto) 22.6 %; Mean Corpuscular Hemoglobin 32.2 pg (25.0-34.0); Mean Corpuscular Hgb Conc 34.9 g/dL (32.0-36.0); Mean Corpuscular Volume 92.1 fL (80.0-100.0); Mean Platelet Volume 10.4 fL (9.4-12.4); Monocytes # (auto) 1.49 K/uL (0.11-0.59); Monocytes % (auto) 17.7 %; Neutrophils # (auto) 4.55 K/uL (1.40-6.50); Neutrophils % (auto) 53.9 %; Platelet Count 253 K/uL (130-400); RDW Coefficient of Variation 13.6 % (11.5-14.5); RDW Standard Deviation 46.3 fL (36.4-46.3); Red Blood Count 3.67 M/uL (4.70-6.10); White Blood Count 8.42 K/ul (4.8-10.8)
[2022-09-13 07:37] LABS: Albumin Globulin Ratio 1.2 (0.9-2); Albumin Level 3.3 gm/dl (3.4-5.0); BUN Creatinine Ratio 19.8 (10-20); Bilirubin,Total 0.4 mg/dl (0.2-1.0); Creatinine Clr Calc Pharmacy 38.5 ml/min; Est GFR (Non-African American) 29.4 ml/min; Globulin 2.8 gm/dl (2.5-4.0); Magnesium 1.8 mg/dl (1.7-2.4); Potassium 3.7 mmol/L (3.5-5.1); Total Protein 6.1 gm/dl (6.0-8.3)
[2022-09-13] MEDS: APIXABAN 2.5 MG TAB PO SCH (08:35)
--- NOTE | 2022-09-13 10:20 | Discharge Summary ---
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 In the ED the patient was initially found to be hypotensive at 75/47, tachycardic with HR in the 140's, but otherwise stable. Labs were significant for a leukocytosis of 13 with left shift of 11, Cr of 2.49 (no previous baseline in system), BUN of 59, AG of 15 with bicarb of 19, initial lactate of 3.8, mag of 1.3, and procal of 0.68. Chest xray was read as "no acute process" and ECG shows sinus tachycardia with a short P-R interval. Prior to admission the patient was given 1L NSS, ordered 1gm of IV mag-sulfate, and ordered a dose of Zosyn. At the time of the exam the patient was resting in bed in no acute distress. He states that he lives in [place] but is in town visiting his son. He had been in his normal state of health until this am at approximately 0300 when he started to developed non-bloody diarrhea. He has had a temperature of 100F this am and has had approximately 10-15 episodes of diarrhea since it started. They ate at a [employer] restaurant for dinner last night, and denies drinking any well water recently. He denies recent antibiotic treatment and did take his am medications today, including his HCTZ. 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 He currently feels less weak than arrival but not back to his baseline yet. He denies recent chest pain, SOB, abd pain, nausea, vomiting, hematuria, LE swelling, and recent trauma. He is a full code and would want his to make medical decisions for him if he cannot make them himself. Please refer to Dr. Salomon's attestation for any changes to the treatment plan Principal Diagnosis Norovirus enteritis, uncomplicated Citrobacter UTI, acute on chronic kidney disease, sepsis present on admission Discharge Exam General-alert and oriented x3, no fevers, no chills HEENT-head atraumatic and normocephalic, pupils equal and reactive to light, extraocular muscles intact Neck-no lymphadenopathy or thyromegaly, trachea midline Chest-clear to auscultation percussion. No rales wheezing or rhonchi Cardiac-regular rate and rhythm, normal S1 and S2 Abdomen-normal bowel sounds, nontender, no hepatosplenomegaly Extremities-no cyanosis, clubbing, or edema Neuro-cranial nerves II through XII intact, motor and sensory function within normal limits, strength symmetrical , no focal deficits Psych-normal affect, normal mood Discharge Data Allergies Allergy/AdvReac Type Severity Reaction Status Date / Time Sulfa (Sulfonamide Allergy Intermediate Rash Unverified 09/11/22 18:00 Antibiotics) Consultations 09/11/22 19:10 ED Decision to Admit Stat Ordered Studies 09/11/22 19:48 CT angio abdomen pelvis w con Stat Hospital Course (1) Enteritis due to Norovirus: Much improved. Nearly resolved now . While hospitalized he received IV fluids. C. difficile gene positivity but no recent antibiotic use and I doubt if he has active C. difficile enteritis (2) UTI (urinary tract infection): Citrobacter isolated. Treated while hospitalized with Zosyn. We will continue Keflex at discharge for a few more days (3) Sepsis: Present on admission with associated hypotension. This resolved with IV fluids. He did not require pressor support. Blood culture results are negative (4) Hypomagnesemia: Corrected with parenteral replacement (5) Hypothyroidism: Stable. 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 Continue Eliquis therapy (7) HTN (hypertension): Stable. Diuretic is temporarily on hold. Restart at discharge Plan Home today, September 13 Total Time Total Time Spent Total Time Spent (In Minutes): 45 minutes Discharge Plan Discharge Items Patient Disposition: Home - Self-Care Reason For Visit: HYPOTENSION, DIARRHEA, WEAKNESS Discharge Diagnosis: Norovirus enteritis, sepsis present on admission, Citrobacter uncomplicated UTI, acute on chronic kidney disease Activity: Resume your previous activity Non-emergency contact: Primary Care Provider Call non-emergency contact if: you have any medication questions and your symptoms worsen Follow-up/Referrals: PCP,NO [Primary Care Provider] - Diet: Regular and Heart Healthy Addtl Attending Provider Instructions: Take Keflex (cephalexin) for 3 more days Pending Studies at Discharge: No Stand-Alone Forms: [facility] makerist, Smoking Cessation Medications and DC Order Prescriptions: New cephalexin 500 mg capsule 500 mg PO TID Qty: 9 0RF No Action allopurinol 100 mg tablet 100 mg PO BID diphenhydramine HCl [Benadryl] 25 mg Capsule 25 mg PO TID PRN (Reason: Allergy Symptoms) gabapentin 300 mg capsule See Rx Instructions .ROUTE .COMPLEX Rx Instructions: 600mg by mouth at noon, 4:00pm and 8:00pm levothyroxine [Levoxyl] 200 mcg tablet 200 mcg PO 5XWK Rx Instructions: THU/THU/THU/THU/THU levothyroxine 200 mcg Tablet 300 mcg PO 2XWK Rx Instructions: / hydrochlorothiazide 25 mg tablet 25 mg PO QAM diphenhydramine-acetaminophen [Tylenol PM Extra Strength] 25-500 mg Tablet 1 tab PO HS PRN (Reason: Sleep) diclofenac sodium 1 % gel 1 g TOPICAL DAILY Eliquis 0 mg PO BID Rx Instructions: Pt is unsure of strength of Eliquis Discharge Orders: Discharge Order (Routine); Ordered 09/13/22 Ordered By: Willy Garsia Admission Data Admit Date/Time: 09/11/22 19:02 Attending Provider: Willy Garsia Admit Provider: Olaf Salomon Primary Care Provider: PCP,NO Other Providers: Olaf Salomon Coding Level of Care Code 86763 INP/OBS DISCH >30 MIN Diagnoses Enteritis due to Norovirus A08.11 UTI (urinary tract infection) N39.0 Sepsis A41.9 Hypomagnesemia E83.42 Hypothyroidism E03.9 [employer]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
--- NOTE | 2022-09-13 11:27 | Discharge Summary ---
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 In the ED the patient was initially found to be hypotensive at 75/47, tachycardic with HR in the 140's, but otherwise stable. Labs were significant for a leukocytosis of 13 with left shift of 11, Cr of 2.49 (no previous baseline in system), BUN of 59, AG of 15 with bicarb of 19, initial lactate of 3.8, mag of 1.3, and procal of 0.68. Chest xray was read as "no acute process" and ECG shows sinus tachycardia with a short P-R interval. Prior to admission the patient was given 1L NSS, ordered 1gm of IV mag-sulfate, and ordered a dose of Zosyn. At the time of the exam the patient was resting in bed in no acute distress. He states that he lives in [place] but is in town visiting his son. He had been in his normal state of health until this am at approximately 0300 when he started to developed non-bloody diarrhea. He has had a temperature of 100F this am and has had approximately 10-15 episodes of diarrhea since it started. They ate at a [employer] restaurant for dinner last night, and denies drinking any well water recently. He denies recent antibiotic treatment and did take his am medications today, including his HCTZ. 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 He currently feels less weak than arrival but not back to his baseline yet. He denies recent chest pain, SOB, abd pain, nausea, vomiting, hematuria, LE swelling, and recent trauma. He is a full code and would want his to make medical decisions for him if he cannot make them himself. Please refer to Dr. Salomon's attestation for any changes to the treatment plan Principal Diagnosis Norovirus enteritis, sepsis present on admission, Citrobacter UTI, acute on chronic kidney disease Discharge Data Allergies Allergy/AdvReac Type Severity Reaction Status Date / Time Sulfa (Sulfonamide Allergy Intermediate Rash Unverified 09/11/22 18:00 Antibiotics) Consultations 09/11/22 19:10 ED Decision to Admit Stat Ordered Studies 09/11/22 19:48 CT angio abdomen pelvis w con Stat Total Time Total Time Spent Total Time Spent (In Minutes): 45 minutes Discharge Plan Discharge Items Patient Disposition: Home - Self-Care Reason For Visit: HYPOTENSION, DIARRHEA, WEAKNESS Discharge Diagnosis: Norovirus enteritis, sepsis present on admission, Citrobacter uncomplicated UTI, acute on chronic kidney disease Activity: Resume your previous activity Non-emergency contact: Primary Care Provider Call non-emergency contact if: you have any medication questions and your symptoms worsen Follow-up/Referrals: PCP,NO [Primary Care Provider] - Diet: Regular and Heart Healthy Addtl Attending Provider Instructions: Take Keflex (cephalexin) for 3 more days Pending Studies at Discharge: No Stand-Alone Forms: My [employer], Smoking Cessation Medications and DC Order Prescriptions: New cephalexin 500 mg capsule 500 mg PO TID Qty: 9 0RF Continued allopurinol 100 mg tablet 100 mg PO BID diphenhydramine HCl [Benadryl] 25 mg Capsule 25 mg PO TID PRN (Reason: Allergy Symptoms) gabapentin 300 mg capsule See Rx Instructions .ROUTE .COMPLEX Rx Instructions: 600mg by mouth at noon, 4:00pm and 8:00pm levothyroxine [Levoxyl] 200 mcg tablet 200 mcg PO 5XWK Rx Instructions: MON/THU/THU/SAT/SUN levothyroxine 200 mcg Tablet 300 mcg PO 2XWK Rx Instructions: / hydrochlorothiazide 25 mg tablet 25 mg PO QAM diphenhydramine-acetaminophen [Tylenol PM Extra Strength] 25-500 mg Tablet 1 tab PO HS PRN (Reason: Sleep) diclofenac sodium 1 % gel 1 g TOPICAL DAILY Eliquis 0 mg PO BID Rx Instructions: Pt is unsure of strength of Eliquis Discharge Orders: Discharge Order (Routine); Ordered 09/13/22 Ordered By: Willy Garsia Admission Data Admit Date/Time: 09/11/22 19:02 Attending Provider: Willy Garsia Admit Provider: Olaf Salomon Primary Care Provider: PCP,NO Other Providers: Olaf Salomon Coding Level of Care Code 45711 INP/OBS DISCH >30 MIN Diagnoses
[2022-09-13] MEDS: GABAPENTIN 300 MG CAP PO SCH (11:54)
[2022-09-16] MEDS ORDERED: LEVOTHYROXINE SODIUM 150 MCG TABLET PO SCH (06:30)
== END 2022-09-13 12:47 | disposition home or self-care (01) | DRG 872 ==
LOC: ED 16:42 → SUATTDRO 19:02 → 2S 19:02